=== PATIENT | female | born 2000 | race African-American/Black ===

== ENCOUNTER 2022-05-13 12:07 | Emergency (ER) | payer OTHER ==
[2022-05-13] MEDS ORDERED: Fluorescein Opthalmic Strip ONE (13:13)
[2022-05-13] MEDS ORDERED: Proparacaine 0.5% Opth 15 ML BOT L EYE SCH (13:30)
== END 2022-05-13 14:32 | disposition home or self-care (01) ==
LOC: CSHERS 12:07
DX: H10.9 Unspecified conjunctivitis (principal)
CPT/HCPCS: 99282